=== PATIENT | female | born 1975 | race Caucasian/White ===

== ENCOUNTER 2020-02-20 07:31 | Emergency (ER) | payer BC, OTHER ==
[~2020-02-20] VITALS: Ht 154.9 cm; Wt 102.1 kg
--- NOTE | 2020-02-20 08:40 | Emergency Department Note ---
History of Present Illnes History of Present Illness Chief Complaint: Skin Rash or Abscess History of Present Illness This is a 44 year old female with cc of skin rash , generalized,seen her PCP and [facility]n Telehealth, not getting better. . Onset (how long ago): week(s) (2) Location: generalized Quality: itching Radiation: Reports non-radiation Severity: moderate Duration (how long): week(s) (2) Timing of current episode: constant (2) Chronicity: new Context: Denies recent illness, Denies recent surgery, Denies recent immobilization, Denies recent travel, Denies trauma/injury, Denies new medications, Denies hx of DVT/PE, Denies non-compliance w/ medications, Denies other Relieving factors: none Exacerbating factors: none Associated symptoms: Reports denies other symptoms Treatments prior to arrival: none Past Medical/Family History Physician Review I have reviewed the patient's past medical and family history. Any updates have been documented here. Past Medical History Past Medical History: None Past Surgical History: None Review of Systems Review of Systems Constitutional: Reports no symptoms EENTM: Reports no symptoms Cardiovascular: Reports no symptoms Respiratory: Reports no symptoms Gastrointestinal: Reports no symptoms Genitourinary: Reports no symptoms Musculoskeletal: Reports no symptoms Integumentary: Reports no symptoms Neurological: Reports no symptoms Psychological: Reports no symptoms Endocrine: Reports no symptoms Hematological/Lymphatic: Reports no symptoms Physical Exam Related Data Vital signs reviewed: Yes Physical Exam CONSTITUTIONAL Constitutional: Present well-developed, Present well-nourished HENT HENT: Present normocephalic, Present atraumatic, Present oropharynx clear/moist, Present nose normal HENT L/R: Present left ext ear normal, Present right ext ear normal EYES Eyes: Reports PERRL, Reports conjunctivae normal NECK Neck: Present ROM normal PULMONARY Pulmonary: Present effort normal, Present breath sounds normal CARDIOVASCULAR Cardiovascular: Present regular rhythm, Present heart sounds normal, Present capillary refill normal, Present normal rate GASTROINTESTINAL Abdominal: Present soft, Present nontender, Present bowel sounds normal GENITOURINARY Genitourinary: Present exam deferred SKIN Skin: Present dry, Present rash MUSCULOSKELETAL Musculoskeletal: Present ROM normal NEUROLOGICAL Neurological: Present alert, Present oriented x 3, Present no gross motor or sensory deficits PSYCHOLOGICAL Psychological: Present mood/affect normal, Present judgement normal Assessment & Plan Medical Decision Making MDM dermatitis Reassessment Reassessment unchanged Assessment & Plan Final Impression: (1) Dermatitis Depart Disposition: HOME, SELF-CARE HOWARD VENTURA MD Feb 20, 2020 08:40
[2020-02-20] MEDS ORDERED: LEXAPRO20 MG PO (11:35)
[2020-02-20] MEDS ORDERED: SYNTHROID112 MCG PO (11:35)
[2020-02-20] MEDS ORDERED: Atarax PO (11:35)
[2020-02-20] MEDS ORDERED: PANTOPRAZOLE SO40 MG PO (11:35)
[2020-02-20] MEDS ORDERED: WELLBUTRIN SR150 MG PO (11:35)
[2020-02-20] MEDS ORDERED: TOPAMAX100 MG PO (11:35)
== END 2020-02-20 08:50 | disposition home or self-care (01) ==
LOC: FSED 07:31
DX: L30.9 Dermatitis, unspecified (principal); Z11.59 Encounter for screening for other viral diseases
CPT/HCPCS: 87635; 99282